=== PATIENT | female | born 1980 | race Caucasian/White ===

== ENCOUNTER 2017-02-03 14:24 | Outpatient (CLI) | payer OTHER ==
[2017-02-03 15:04] LABS: eGFR (African) > 60; eGFR (Non-African) > 60
== END 2017-02-03 14:30 ==
LOC: LAB 14:24
PROVIDERS: ATTEND Family Medicine
DX: Z00.00 Encounter for general adult medical examination without abnormal findings (principal)
CPT/HCPCS: 36415; 80053; 80061

== ENCOUNTER 2018-05-09 14:04 | Outpatient (CLI) | payer OTHER ==
[2018-05-09 15:41] LABS: eGFR (Non-African) > 60
== END 2018-05-09 14:06 ==
LOC: LAB 14:04
PROVIDERS: ATTEND Family Medicine
DX: Z00.00 Encounter for general adult medical examination without abnormal findings (principal)
CPT/HCPCS: 36415; 80053; 80061

== ENCOUNTER 2019-02-02 08:35 | Outpatient (CLI) | payer OTHER ==
[2019-02-13 08:59] LABS: HDL 71 mg/dL (>40); eGFR (Non-African) > 60
== END 2019-02-02 08:40 ==
LOC: LAB 08:35
PROVIDERS: ATTEND Family Medicine
DX: Z00.00 Encounter for general adult medical examination without abnormal findings (principal)
CPT/HCPCS: 36415; 80053; 80061